=== PATIENT | female | born 1965 | race Caucasian/White ===

== ENCOUNTER 2021-01-24 00:14 | Emergency (ER) | payer BC, OTHER ==
[2021-01-24 00:29] VITALS: TEMP 97.5; BMI 27.3
[2021-01-24] MEDS ORDERED: SODIUM CHLORIDE 0.9% 500 ML INFUS.BAG IV ONE (01:00)
[2021-01-24 01:53] LABS: BASO % 0.5 % (0-2.0); HEMOGLOBIN 12.3 GM/dL (10.7-15.3); LYMPH % 32.2 % (8-40); MCHC 33.3 g/dl (32.0-36.0); MEAN CELL VOLUME 84.2 fl (80-96); MEAN PLT VOLUME 8.8 fl (7.5-11.1); MONO % 6.1 % (3.8-10.2); NEUT % 59.2 % (42.8-82.8); PLATELET COUNT 235 10^3/uL (134-434); RBC 4.39 M/mm3 (3.60-5.2); RDW 12.8 % (11.6-15.6); WHITE BLOOD COUNT 9.3 K/mm3 (4.0-10.0)
[2021-01-24 02:15] LABS: CHLORIDE 107 mmol/L (98-107); SODIUM 140 mmol/L (136-145)
[2021-01-24 02:18] LABS: ALBUMIN 3.4 g/dl (3.4-5.0); BLOOD UREA NITROGEN 18.9 mg/dL (7-18); CALCIUM 8.3 mg/dL (8.5-10.1); CO2 26 mmol/L (21-32)
[2021-01-24 02:19] LABS: LIPASE 171 U/L (73-393); MAGNESIUM 1.8 mg/dL (1.8-2.4)
[2021-01-24 02:21] LABS: CREATININE 0.8 mg/dL (0.55-1.3); GLUCOSE,RANDOM 128 mg/dL (74-106); SGOT/AST 27 U/L (15-37); SGPT/ALT 41 U/L (13-61)
[2021-01-24 02:23] LABS: BILIRUBIN,TOTAL 0.2 mg/dL (0.2-1); TOT PROT 7.2 g/dl (6.4-8.2)
[2021-01-24 02:24] LABS: ALK PHOS 105 U/L (45-117)
[2021-01-24] MEDS ORDERED: LACTATED RINGERS SOLUTION 1000 ML INFUS.BAG IV ONE ×2 (02:58→03:29)
[2021-01-24 03:01] LABS: ANION GAP 7 MMOL/L (8-16)
[2021-01-24 03:07] LABS: EPI CELLS 7 /uL (0-25.1); HYALINE CASTS 0 /uL (0-3.1); URINE APPEARANCE CLEAR; URINE BACTERIA 172 /uL (0-1359); URINE BILIRUBIN NEGATIVE (NEGATIVE); URINE COLOR YELLOW; URINE GLUCOSE (UA) NEGATIVE (NEGATIVE); URINE KETONE NEGATIVE (NEGATIVE); URINE LEUK ESTERASE 1+ (NEGATIVE); URINE NITRITE NEGATIVE (NEGATIVE); URINE PROTEIN NEGATIVE (NEGATIVE); URINE RBC 12 /uL (0-23.9); URINE UROBILINOGEN 0.2 mg/dL (0.2-1.0); URINE WBC 27 /uL (0-25.8)
[2021-01-24 04:05] VITALS: BP 110/74; PULSE 72
== END 2021-01-24 06:06 | disposition home or self-care (01) ==
LOC: JER 00:14
DX: R53.1 Weakness (principal)
CPT/HCPCS: 36415; 71045-TC-FY; 80053; 81003; 82550; 82553; 83690; 83735; 84439; 84443; 84484; 85025; 87086; 87804; 93005; 93010; 99285-25; C9803; U0003; U0005

== ENCOUNTER 2022-03-12 04:35 | Day surgery (SDC) | payer OTHER ==
[2022-03-11 11:38] VITALS: BMI 23.3
[2022-03-12 09:29] VITALS: TEMP 98.1
[2022-03-12 09:45] VITALS: BP 125/80; PULSE 70; RESP 16
== END 2022-03-12 09:47 | disposition home or self-care (01) ==
LOC: JASU-ENDO 04:35
PROVIDERS: ATTEND Internal Medicine Gastroenterology
PROC: 0DB78ZX Excision of Stomach, Pylorus, Via Natural or Artificial Opening Endoscopic, Diagnostic (ICD-10-PCS; 2022-03-12)
PROC: 0DBK8ZX Excision of Ascending Colon, Via Natural or Artificial Opening Endoscopic, Diagnostic (ICD-10-PCS; principal; 2022-03-12 08:45)
DX: Z12.11 Encounter for screening for malignant neoplasm of colon (principal); D12.2 Benign neoplasm of ascending colon; K29.50 Unspecified chronic gastritis without bleeding; K64.8 Other hemorrhoids; I10 Essential (primary) hypertension
CPT/HCPCS: 88305-TC; 88342-TC

== ENCOUNTER 2022-08-18 15:20 | Emergency (ER) | payer OTHER ==
[2022-08-18 15:27] VITALS: BP 115/76; PULSE 80; RESP 16; TEMP 98.2; BMI 26.5
[2022-08-18] MEDS ORDERED: METOCLOPRAMIDE HCL INJECTION 10 MG/2 ML VIAL IVPUSH ONE (16:10)
[2022-08-18] MEDS ORDERED: SODIUM CHLORIDE 1,000 ML IV STA (16:10)
[2022-08-18] MEDS ORDERED: KETOROLAC TROMETHAMINE 30 MG/1 ML VIAL IVPUSH ONE (16:11)
[2022-08-18] MEDS ORDERED: KETOROLAC TROMETHAMINE 30 MG/1 ML VIAL ONE ×2 (16:16→16:19)
[2022-08-18] MEDS ORDERED: METOCLOPRAMIDE HCL INJECTION 10 MG/2 ML VIAL ONE (16:16)
[2022-08-18 16:52] LABS: BASO % 0.8 % (0-2.0); EOS % 1.8 % (0-4.5); HEMATOCRIT 36.5 % (32.4-45.2); HEMOGLOBIN 12.3 GM/dL (10.7-15.3); MCH 27.8 pg (25.7-33.7); MCHC 33.7 g/dl (32.0-36.0); MEAN CELL VOLUME 82.6 fl (80-96); MEAN PLT VOLUME 8.7 fl (7.5-11.1); MONO % 6.3 % (3.8-10.2); NEUT % 40.1 % (42.8-82.8); PLATELET COUNT 234 10^3/uL (134-434); RBC 4.41 M/mm3 (3.60-5.2); RDW 12.8 % (11.6-15.6); WHITE BLOOD COUNT 7.1 K/mm3 (4.0-10.0)
[2022-08-18 17:17] LABS: POTASSIUM 4.1 mmol/L (3.5-5.1)
[2022-08-18 17:18] LABS: CALCIUM 8.4 mg/dL (8.5-10.1)
[2022-08-18 17:19] LABS: ALBUMIN 3.7 g/dl (3.4-5.0); BLOOD UREA NITROGEN 18.8 mg/dL (7-18)
[2022-08-18 17:22] LABS: CREATININE 0.9 mg/dL (0.55-1.3)
[2022-08-18 17:23] LABS: TOT PROT 7.4 g/dl (6.4-8.2)
[2022-08-18 17:24] LABS: BILIRUBIN,TOTAL 0.3 mg/dL (0.2-1)
== END 2022-08-18 17:37 | disposition home or self-care (01) ==
LOC: JERFT 15:20
PROC: 3E0333Z Introduction of Anti-inflammatory into Peripheral Vein, Percutaneous Approach (ICD-10-PCS; principal; 2022-08-18)
PROC: 3E033GC Introduction of Other Therapeutic Substance into Peripheral Vein, Percutaneous Approach (ICD-10-PCS; 2022-08-18)
PROC: 3E0337Z Introduction of Electrolytic and Water Balance Substance into Peripheral Vein, Percutaneous Approach (ICD-10-PCS; 2022-08-18)
DX: R51.9 Headache, unspecified (principal); H57.11 Ocular pain, right eye; H53.71 Glare sensitivity; G43.809 Other migraine, not intractable, without status migrainosus; H11.31 Conjunctival hemorrhage, right eye
CPT/HCPCS: 36415; 80053; 85025; 99284-25